=== PATIENT | female | born 1955 | race Caucasian/White ===

== ENCOUNTER 2016-03-15 09:10 | Emergency (ER) | payer MEDICARE ==
[2016-03-15 09:18] VITALS: BP 185/104; PULSE 67; RESP 18; TEMP 97.8; O2SAT 95
[2016-03-15 09:25] VITALS: RESP 16; O2SAT 96
[2016-03-15] MEDS ORDERED: RAMI2.5C PO (09:26)
[2016-03-15] MEDS ORDERED: CARV6.252 PO (09:26)
[2016-03-15] MEDS ORDERED: ASPI325T PO (09:26)
[2016-03-15] MEDS ORDERED: SIMV40TA PO (09:26)
--- NOTE | 2016-03-15 09:34 | PD ---
HPI Chief Complaint: Back/ Neck Pain or Injury Time Seen by Provider: 09:16 Travel History International Travel<30 days: No Contact w/Intl Traveler<30days: No Traveled to known affect area: No History of Present Illness HPI 60-year-old female complains of neck pain. Patient states that the symptoms started 4 days ago. Patient states the pain aching pain localized to the posterior aspect of the neck. Patient denies any pain radiation. Patient denies any recent injury. Patient denies any chest pain or shortness of breath. Patient has history of CAD status post W[place] and stent placement in the past. Patient states that she had neck pain during last W[place] episode. Patient had stent placement in 2009 and again in 2013. Patient on aspirin 325 mg, 2 tablets daily. Patient has history hypertension, dyslipidemia. Patient is a smoker. Patient denies history diabetes. Patient states that she ran out of her blood pressure medication about 2 weeks ago . Patient was seen at local urgent care center and given prescription to restart her back on her blood pressure medication. Patient has not been taking her high cholesterol medication. Patient has history of COPD however does not have her inhaler with her. PFSH Past Medical History Cardiac Catheterization: Yes High Cholesterol: Yes COPD: Yes Coronary Artery Disease: Yes Hypertension: Yes Myocardial Infarction: Yes Thyroid Disease: Yes Influenza Vaccination: No ?: Not Past Surgical History Section: Yes Coronary Stent: Yes (X2) Tonsillectomy: Yes Social History Alcohol Use: Yes (DAILY) Tobacco Use: Yes (1.5 PPD) Substance Use: No Allergies-Medications (Allergen,Severity, Reaction): Coded Allergies: No Known Allergies (Unverified , 03/15/16) Reported Meds & Prescriptions Reported Meds & Active Scripts Active Reported Carvedilol 6.25 Mg Tab 6.25 Mg PO BID Ramipril 2.5 Mg Cap 2.5 Mg PO DAILY Simvastatin 40 Mg Tab 40 Mg PO HS Aspirin 325 Mg Tab 650 Mg PO DAILY Review of Systems General / Constitutional: No: Fever Eyes: No: Visual changes HENT: Positive: Neck Pain, No: Headaches Cardiovascular: No: Chest Pain or Discomfort Respiratory: No: Shortness of Breath Gastrointestinal: No: Abdominal Pain Genitourinary: No: Dysuria Musculoskeletal: No: Pain Skin: No Rash Neurologic: No: Weakness Psychiatric: No: Depression Endocrine: No: Polydipsia Hematologic/Lymphatic: No: Easy Bruising Physical Exam Narrative GENERAL: Well-nourished, well-developed patient. SKIN: Warm and dry. HEAD: Normocephalic. EYES: No scleral icterus. No injection or drainage. NECK: Supple, trachea midline. No JVD or lymphadenopathy. CARDIOVASCULAR: Regular rate and rhythm without murmurs, gallops, or rubs. RESPIRATORY: Breath sounds equal bilaterally. No accessory muscle use. Patient has mild expiratory wheezes bilaterally. GASTROINTESTINAL: Abdomen soft, non-tender, nondistended. MUSCULOSKELETAL: No cyanosis, or edema. BACK: Nontender without obvious deformity. No CVA tenderness. Neurologic exam normal. Data Data Last Documented VS Vital Signs Date Time Temp Pulse Resp B/P Pulse Ox O2 Delivery O2 Flow Rate FiO2 03/15/16 10:13 64 16 111/70 94 Room Air 03/15/16 09:18 97.8 Orders Electrocardiogram (03/15/16 09:24) Complete Blood Count With Diff (03/15/16:24) Comprehensive Metabolic Panel (03/15/16:24) Creatine Kinase (Cpk) (03/15/16:24) Troponin I (03/15/16:24) Prothrombin Time / Inr (Pt) (03/15/16:24) Act Partial Throm Time (Ptt) (03/15/16:24) Thyroid Stimulating Hormone (03/15/16:24) Chest, Single Ap (03/15/16:24) Spine, Cervical - Ltd (Ap&Lat) (03/15/16:24) Iv Access Insert/Monitor (03/15/16:24) Ecg Monitoring (03/15/16:24) Oximetry (03/15/16:24) Labs Laboratory Tests Test 03/15/16 09:25 White Blood Count 9.4 TH/MM3 Red Blood Count 5.97 MIL/MM3 Hemoglobin 17.5 GM/DL Hematocrit 54.6 % Mean Corpuscular Volume 91.4 FL Mean Corpuscular Hemoglobin 29.4 PG Mean Corpuscular Hemoglobin 32.2 % Concent Red Cell Distribution Width 13.8 % Platelet Count 162 TH/MM3 Mean Platelet Volume 9.6 FL Neutrophils (%) (Auto) 80.1 % Lymphocytes (%) (Auto) 10.7 % Monocytes (%) (Auto) 4.0 % Eosinophils (%) (Auto) 3.9 % Basophils (%) (Auto) 1.3 % Neutrophils # (Auto) 7.5 TH/MM3 Lymphocytes # (Auto) 1.0 TH/MM3 Monocytes # (Auto) 0.4 TH/MM3 Eosinophils # (Auto) 0.4 TH/MM3 Basophils # (Auto) 0.1 TH/MM3 CBC Comment DIFF FINAL Differential Comment Prothrombin Time 10.7 SEC Prothromb Time International 1.0 RATIO Ratio Activated Partial 30.2 SEC Thromboplast Time Sodium Level 142 MEQ/L Potassium Level 3.5 MEQ/L Chloride Level 102 MEQ/L Carbon Dioxide Level 33.5 MEQ/L Anion Gap 7 MEQ/L Blood Urea Nitrogen 8 MG/DL Creatinine 0.78 MG/DL Estimat Glomerular Filtration 75 ML/MIN Rate Random Glucose 119 MG/DL Calcium Level 9.6 MG/DL Total Bilirubin 0.4 MG/DL Aspartate Amino Transf 16 U/L (AST/SGOT) Alanine Aminotransferase 21 U/L (ALT/SGPT) Alkaline Phosphatase 96 U/L Total Creatine Kinase 105 U/L Troponin I LESS THAN 0.02 NG/ML Total Protein 8.2 GM/DL Albumin 3.8 GM/DL Thyroid Stimulating Hormone 2.000 uIU/ML [address] [place] [address] Medical Decision Making Medical Screen Exam Complete: Yes Emergency Medical Condition: Yes Interpretation(s) 9:33 AM. EKG shows sinus rhythm with right bundle-branch block. 10:42 AM. Last Impressions Chest X-Ray 03/15/16923 Signed Impressions: Service Date/Time: Tuesday, March 15, 2016 10:00 - CONCLUSION: No acute disease. Maria R Perea MD Cervical Spine X-Ray 03/15/16923 Signed Impressions: Service Date/Time: Tuesday, March 15, 2016 09:53 - CONCLUSION: Degenerative changes of the cervical spine, predominantly within the region of the facet joints causing mild anterolisthesis as noted above. Maria R Perea MD 10:43 AM. CBC within normal limit. 80 neutrophil. CMP within normal limit. Cardiac enzymes are normal. Differential Diagnosis Differential diagnosis including musculoskeletal, angina, W[place], PE, pneumothorax. Narrative Course 60-year-old female complains of neck pain. Patient had neck pain in the past when she had an [place]. Patient status post stents placement. Patient took aspirin 325, 2 tablets this morning. I discussed the results of x-ray, EKG, blood tests with the patient. Advised patient to be admitted for chest pain center for stress test. Patient does not want to stay. Patient wanted go home and follow-up with lab manager outpatient. Diagnosis Primary Impression: Neck pain Patient Instructions: General Instructions Additional Instructions: Continue with aspirin daily. Follow-up with lab manager. Return immediately if increasing chest pain or shortness of breath. Med/Other Pt SpecificInfo: Prescription(s) given Scripts Albuterol 8.5 GM Inh (Proair Hfa 8.5 GM Inh)90 Mcg/Act Aer2 Puff INH Q4-6H PRN ( SHORTNESS OF BREATH) #1 INHALER 108 mcg/actuation Prov:Tucker Berry MD 03/15/16 Disposition: 01 DISCHARGE HOME Condition: Stable Tucker Berry MD Mar 15, 2016 09:34
[2016-03-15 09:38] LABS: AUTOMATED NEUTROPHIL # 7.5 TH/MM3 (1.8-7.7); BASOPHIL # 0.1 TH/MM3 (0-0.2); BASOPHIL % 1.3 % (0.0-2.0); EOSINOPHIL # 0.4 TH/MM3 (0-0.4); EOSINOPHIL % 3.9 % (0.0-4.0); HEMATOCRIT 54.6 % (35.0-46.0); HEMO FLAGS DIFF FINAL; LYMPH % 10.7 % (9.0-44.0); MEAN CELL VOLUME 91.4 FL (80.0-100.0); MEAN CORPUSCULAR HEMOGLOBIN 29.4 PG (27.0-34.0); MEAN CORPUSCULAR HGB CONC 32.2 % (32.0-36.0); NEUT % 80.1 % (16.0-70.0); PLATELET COUNT 162 TH/MM3 (150-450); RED BLOOD COUNT 5.97 MIL/MM3 (4.00-5.30); RED CELL DISTRIBUTION WIDTH 13.8 % (11.6-17.2); WHITE BLOOD COUNT 9.4 TH/MM3 (4.0-11.0)
[2016-03-15 09:51] LABS: APTT (PATIENT) 30.2 SEC (24.3-30.1); PROTHROMBIN TIME - PATIENT 10.7 SEC (9.8-11.6)
[2016-03-15 10:13] VITALS: BP 111/70; PULSE 64; RESP 16; O2SAT 94
[2016-03-15 10:17] LABS: BICARBONATE 33.5 MEQ/L (21.0-32.0); BLOOD UREA NITROGEN 8 MG/DL (7-18)
[2016-03-15 10:20] LABS: ALT (GPT) 21 U/L (10-53); ANION GAP 7 MEQ/L (5-15); CHLORIDE 102 MEQ/L (98-107); GLOMERULAR FILTRATION RATE 75 ML/MIN (>89); POTASSIUM 3.5 MEQ/L (3.5-5.1); SODIUM (NA) 142 MEQ/L (136-145)
--- NOTE | 2016-03-15 10:20 | RADHPO ---
EXAM DATE/TIME: 03/15/2016 10:00 [facility] COMPARISON: [facility] ([facility]), March 15, 2016, 9:53. INDICATIONS : Short of breath. MEDICAL HISTORY : Chronic obstructive pulmonary disease. smoker SURGICAL HISTORY : Coronary artery stent. ENCOUNTER: Initial ACUITY: 2 days PAIN SCORE: 0/10 LOCATION: Bilateral chest FINDINGS: A single view of the chest demonstrates the lungs to be symmetrically aerated without evidence of mas s, infiltrate or effusion. The cardiomediastinal contours are unremarkable. Osseous structures are intact. CONCLUSION: No acute disease. Maria R Perea MD on March 15, 2016 at 10:18 Board Certified Radiologist. This report was verified electronically.
--- NOTE | 2016-03-15 10:21 | RADHPO ---
EXAM DATE/TIME: 03/15/2016 09:53 [facility] COMPARISON: No previous studies available for comparison. INDICATIONS : Neck pain, no known injury. MEDICAL HISTORY : None. SURGICAL HISTORY : None. ENCOUNTER: Initial ACUITY: 4 - 6 days PAIN SCORE: 4/10 LOCATION: neck FINDINGS: Multiple views of the cervical spine demonstrate no evidence of acute abnormality. There is grade 1 a nterolisthesis of C4 on C5 and C5 on C6. This is secondary to facet degenerative changes. The vertebr al body heights are maintained. The bone mineralization is normal. The pre-vertebral soft tissues are normal. CONCLUSION: Degenerative changes of the cervical spine, predominantly within the region of the fa cet joints causing mild anterolisthesis as noted above. Maria R Perea MD on March 15, 2016 at 10:18 Board Certified Radiologist. This report was verified electronically.
[2016-03-15 10:23] LABS: ALKALINE PHOSPHATASE 96 U/L (45-117); CREATINE KINASE 105 U/L (26-192)
[2016-03-15 10:27] LABS: AST (GOT) 16 U/L (15-37)
[2016-03-15 10:36] LABS: TOTAL BILIRUBIN ADULT 0.4 MG/DL (0.2-1.0)
[2016-03-15] MEDS ORDERED: ALBUAER3 INH (10:50)
[2016-03-15 11:07] VITALS: BP 104/69; PULSE 60; RESP 16; O2SAT 95
--- NOTE | 2016-03-16 10:45 | EKG ---
Date Performed: 03/15/2016 Time Performed: 09:12:42 PTAGE: 60 years EKG: Sinus rhythm Severe right axis deviation Right bundle branch block Low QRS voltages in precordial leads Abnormal ECG NO PREVIOUS TRACING DOCTOR: Azeem Rae Interpretating Date/Time 03/16/2016 10:43:49
== END 2016-03-15 11:18 | disposition home or self-care (01) ==
LOC: PHED 09:10
DX: M54.2 Cervicalgia (principal); I25.10 Atherosclerotic heart disease of native coronary artery without angina pectoris; I10 Essential (primary) hypertension; I25.2 Old myocardial infarction; I45.10 Unspecified right bundle-branch block; J44.9 Chronic obstructive pulmonary disease, unspecified; F17.200 Nicotine dependence, unspecified, uncomplicated; R94.31 Abnormal electrocardiogram [ECG] [EKG]; Z79.82 Long term (current) use of aspirin; Z79.899 Other long term (current) drug therapy
CPT/HCPCS: 71010; 72040; 80053; 82550; 84443; 84484; 85025; 85610; 85730; 93005

== ENCOUNTER 2016-09-25 09:07 | Emergency (ER) | payer MEDICARE ==
[~2016-09-25] VITALS: Ht 162.6 cm; Wt 75.0 kg
[~2016-09-25 09:07] MED LIST: ALBUAER3 INH; ASPI325T PO; CARV6.252 PO; RAMI2.5C PO; SIMV40TA PO
[2016-09-25] MEDS ORDERED: TETANUS/DIPHTHERIA TOXOID ADULT 0.5 ML VIAL IM ONE (09:15)
[2016-09-25 09:18] VITALS: BP 131/68; PULSE 63; RESP 18; TEMP 98; O2SAT 98
[2016-09-25] MEDS ORDERED: LEVO112T2 PO (09:25)
--- NOTE | 2016-09-25 09:50 | PD ---
HPI Chief Complaint: Soup Person Problem/Complaint Time Seen by Provider: 09:09 Travel History International Travel<30 days: No Contact w/Intl Traveler<30days: No Traveled to known affect area: No History of Present Illness HPI 61-year-old female reports pain with coitus, receptive vaginal intercourse, 4 days prior. Last episode of sexual intercourse was 15 years prior. She believes the pain may be due to the long interval of sexual abstinence or possibly that the vaginal monge are fibrosed in close approximation. Pt reports using a lubricant. She requests a pelvic exam. She's had no discharge however reports trace spotting over the past couple days. She denies any possibility of STD. No urinary complaint. PFSH Past Medical History Cardiac Catheterization: Yes Cardiovascular Problems: Yes (2 STENTS) High Cholesterol: Yes COPD: Yes Coronary Artery Disease: Yes Hypertension: Yes Myocardial Infarction: Yes Thyroid Disease: Yes ?: Not LMP: MARAL Past Surgical History Section: Yes Coronary Stent: Yes (X2) Tonsillectomy: Yes Social History Alcohol Use: Yes (DAILY) Tobacco Use: Yes (1.5 PPD) Substance Use: No Allergies-Medications (Allergen,Severity, Reaction): Coded Allergies: No Known Allergies (Unverified , 03/15/16) Reported Meds & Prescriptions Reported Meds & Active Scripts Active Reported Levothyroxine (Levothyroxine Sodium) 112 Mcg Tab 112 Mcg PO DAILY Carvedilol 6.25 Mg Tab 6.25 Mg PO BID Ramipril 2.5 Mg Cap 2.5 Mg PO DAILY Aspirin 325 Mg Tab 650 Mg PO DAILY Review of Systems Except as stated in HPI: all other systems reviewed are Neg General / Constitutional: No: Fever Genitourinary: Positive: Vaginal Bleeding Physical Exam Narrative GENERAL: 61-year-old female well-nourished well-developed no acute distress Pelvic: Vaginal mucosa is intact and pink. There is no discharge within the vaginal vault. There is no CMT adnexal mass or tenderness. There is no vulvar abnormality. Vaginal introitus slightly narrow in diameter. SKIN: Focused skin assessment warm/dry. HEAD: Atraumatic. Normocephalic. EYES: Pupils equal and round. No scleral icterus. No injection or drainage. ENT: No nasal bleeding or discharge. Mucous membranes pink and moist. NECK: Trachea midline. No JVD. CARDIOVASCULAR: Regular rate and rhythm. No murmur appreciated. RESPIRATORY: No accessory muscle use. Clear to auscultation. Breath sounds equal bilaterally. GASTROINTESTINAL: Abdomen soft, non-tender, nondistended. Hepatic and splenic margins not palpable. MUSCULOSKELETAL: No obvious deformities. No clubbing. No cyanosis. No edema. NEUROLOGICAL: Awake and alert. No obvious cranial nerve deficits. Motor grossly within normal limits. Normal speech. PSYCHIATRIC: Appropriate mood and affect; insight and judgment normal. Data Data Last Documented VS Vital Signs Date Time Temp Pulse Resp B/P Pulse Ox O2 Delivery O2 Flow Rate FiO2 09/25/16 09:18 98.0 63 18 131/68 98 Vital signs reviewed Orders Tetanus/Diphtheria Tox Adult (Tetanus/Di (09/25/16 09:15) MDM Medical Decision Making Medical Screen Exam Complete: Yes Emergency Medical Condition: Yes Medical Record Reviewed: Yes Differential Diagnosis Vaginal atrophy, vulvar dermatitis, mucosal trauma Narrative Course Pelvic exam is unremarkable although the vaginal introitus is slightly narrow in diameter. This was discussed with patient. Return precautions discussed. Diagnosis Primary Impression: Dyspareunia in female Referrals: Michael Diane MD 2 days Additional Instructions: You have a choice when it comes to health care, and we are glad that you chose [facility]. Hopefully, we have met your expectations on today's visit. You are welcome to return to [facility] at any time, as we are committed to meeting the health care needs of our community. Med/Other Pt SpecificInfo: No Change to Meds Disposition: 01 DISCHARGE HOME Condition: Stable Caleb Chaves MD Sep 25, 2016 09:50
== END 2016-09-25 10:21 | disposition home or self-care (01) ==
LOC: PHED 09:07
DX: N94.10 Unspecified dyspareunia (principal)
CPT/HCPCS: 99284